=== PATIENT | male | born 1965 | race Caucasian/White ===

== ENCOUNTER 2017-02-26 07:32 | Emergency (ER) | payer OTHER ==
[~2017-02-26] VITALS: Ht 177.8 cm; Wt 95.5 kg
--- NOTE | 2017-02-26 08:29 | REP ---
Right femur four views AP and lateral projections, including right hip: The mineralization is normal. There is no fracture or dislocation. The right hip is unremarkable. No calcifications or foreign bodies. Impression: Negative right femur. Signed by Richard Goodrich MD 02/26/2017 08:20 A
[2017-02-26] MEDS ORDERED: PERCOCET 5MG/325MG TAB PO ONE (08:30)
--- NOTE | 2017-02-26 08:31 | REP ---
Right knee five views: Mineralization and joint spaces are normal. There is no fracture or dislocation. There is no effusion. There are no calcifications or foreign bodies. Impression: Negative right knee. Signed by Richard Goodrich MD 02/26/2017 08:23 A
[2017-02-26 12:15] VITALS: BP 147/87
[2017-02-26] MEDS ORDERED: PERC5TAB12 PO (12:39)
== END 2017-02-26 13:22 | disposition home or self-care (01) ==
LOC: M ED 07:32
DX: M25.561 Pain in right knee (principal); W17.89XA Other fall from one level to another, initial encounter; Y92.89 Other specified places as the place of occurrence of the external cause; Y93.89 Activity, other specified; Y99.0 Civilian activity done for income or pay